=== PATIENT | female | born 1995 | race African-American/Black ===

== ENCOUNTER 2024-11-07 10:55 | Inpatient (IN) | payer OTHER, SELFPAY ==
[~2024-11-07] VITALS: Ht 160 cm; Wt 60.0 kg
--- NOTE | 2024-11-07 11:46 | ECG ---
[facility] Test Date: 2024-11-07 Test Time: 11:22:48 Pat Name: TOMASZ ALVAREZ Department: ER Room: 0293 Gender: F Fleet Manager: ANH : 1995 Requested By: BELA COLLINS Order Number: [id number] Reading MD: Golden Nichole Measurements Intervals [place] Rate: 127 P: 78 NJ: 118 QRS: 77 QRSD: 75 T: -56 QT: 285 QTc: 415 Interpretive Statements Sinus tachycardia Multiple ventricular premature complexes Nonspecific T abnormalities, diffuse leads Electronically Signed On 11-09-2024 19:02:08 PDT by Golden Nichole Please click the below link to view image of tracing.
--- NOTE | 2024-11-07 11:48 | ED.PDOC ---
GI ASSESSMENT HPI Comments This is a 29 year old female presenting to the ED with chief complaint of abdominal pain. Patient reports that she has been experiencing RUQ abdominal pain with associated mid-sternal chest pain, back pain, fever, nausea, SOB, and poor appetite for the past 18 days. Patient relays that she visited both a [facility] and [place] for evaluation, being diagnosed with gallbladder sludge and lesions on her liver. Patient notes her last fever was 101F on Abdiel. Patient denies any vomiting, diarrhea, chills, dysuria, cough, or headache. Chief Complaint: Abdominal Pain Time Seen by MD: 11:40 Reviewed Notes: Nurses Notes, Medications, Allergies Information Source: Patient Mode of Arrival: Ambulatory Timing: Weeks Duration: Since onset Prehospital treatment: None Quality: Aching Vomitus: None Stool: Normal Severity: Moderate Recent: None Recent Hx of: None Pain Location: Epigastric, RUQ Modifying Factors: Nothing Associated sign and symptoms: Nausea Past Medical History PAST MEDICAL HISTORY: Denies Surgical History: Denies all surgeries SOA INTEGRATION ARCHITECT History: No Pertinent SOA INTEGRATION ARCHITECT History Family History Family History: Reviewed,noncontributory to illness Social History Smoker: Non-Smoker Alcohol: Denies ETOH Use Drugs: Denies Drug Use Lives In: Home Constitutional: reports: fever; denies: chills, diaphoresis, fatigue, malaise, sweats, weakness, others EENTM: denies: blurred vision, double vision, ear bleeding, ear discharge, ear drainage, ear pain, ear ringing, eye pain, eye redness, hearing loss, mouth pain, mouth swelling, nasal discharge, nose bleeding, nose congestion, nose pain, photophobia, tearing, throat pain, throat swelling, voice changes, others Respiratory: reports: shortness of breath; denies: cough, hemoptysis, orthopnea, SOB at rest, SOB with excertion, stridor, wheezing, others Cardiovascular: reports: chest pain; denies: dizzy spells, diaphoresis, Dyspnea on exertion, edema, irregular heart beat, left arm pain, lightheadedness, palpitations, PND, syncope, others Gastrointestinal: reports: abdominal pain, nausea, poor appetite; denies: abdomen distended, blood streaked bowels, constipated, diarrhea, dysphagia, difficulty swallowing, hematemesis, melena, poor fluid intake, rectal bleeding, rectal pain, vomiting, others Genitourinary: denies: abnormal vagina bleeding, burning, dyspareunia, dysuria, flank pain, frequency, hematuria, incontinence, pain, , vagina discharge, urgency, others Neurological: denies: dizziness, fainting, headache, left sided numbness, left sided weakness, numbness, paresthesia, pre-existing deficit, right sided numbness, right sided weakness, seizure, speech problems, tingling, tremors, weakness, others Musculoskeletal: reports: back pain; denies: gout, joint pain, joint swelling, muscle pain, muscle stiffness, neck pain, others Integumetry: denies: bruises, change in color, change in hair/nails, dryness, laceration, lesions, lumps, rash, wounds, others Allergic/Immunocompromised: denies: Difficulty Healing, Frequent Infections, Hives, Itching, others Hematologic/Lymphatic: denies: anemia, blood clots, easy bleeding, easy bruising, swollen glands, others Endocrine: denies: excessive hunger, excessive sweating, excessive thirst, excessive urination, flushing, intolerance to cold, intolerance to heat, unexplained weight gain, unexplained weight loss, others Psychiatric: denies: anxiety, bipolar disorder, depression, hopeless, panic disorder, schizophrenia, sleepless, suicidal, others All Other Systems: Reviewed and Negative Physical Exam General Appearance: Moderate Distress HEENT: Normal ENT Inspection, Pharynx Normal, TMs Normal Neck: Full Range of Motion, Non-Tender, Normal, Normal Inspection Respiratory: Chest Non-Tender, Lungs Clear, No Accessory Muscle Use, No Respiratory Distress, Normal Breath Sounds Cardiovascular: No Edema, No JVD, No Murmur, No Gallop, Tachycardia Breast Exam: Deferred Gastrointestinal: Diffuse, No Organomegaly, No Pulsatile Mass, Normal Bowel Sounds, Soft, Tenderness Genitalia: Deferred Pelvic: Deferred Rectal: Deferred Extremities: No calf tenderness, Normal capillary refill, No pedal edema Musculoskeletal : Apperance: Normal Neurologic: Alert, hospice office coordinator II-XII nml as Tested, Motor Weakness, Normal Affect, Normal Mood, No Sensory Deficits Cerebellar Function: Normal Reflexes: Normal Skin: Dry, Normal Color, Warm Lymphatic: No Adenopathy EKG EKG : Pulse Rate (adult): 127 [place]: Normal Cardiac Rhythm: ST Block: None Hypertrophy: None ST: Normal Was a procedure done? Was a procedure done?: No GI differential Dx Differential Diagnosis: Gastritis/PUD, Gastroenteritis, Inflammatory BD, Ischemic Bowel, Pancreatitis, UTI, Electrolyte Imbalance, Food Poisoning X-Ray, Labs, Meds, VS Vital Signs Date Time Temp Pulse Resp B/P (MAP) Pulse Ox O2 Delivery O2 Flow Rate FiO2 11/07/24 11:48 127 11/07/24 11:22 127 11/07/24 11:02 97.4 127 18 122/47 (72) 99 97.4 Lab Test 11/07/24 11:54 Range/Units White Blood Count 10.8 4.4-10.8 10^3/uL Red Blood Count 5.72 H 4.0-5.20 10^6/uL Hemoglobin 16.1 12.2-16.2 g/dL Hematocrit 48.5 H 36.0-46.0 % Mean Corpuscular Volume 84.8 80.0-100.0 fL Mean Corpuscular Hemoglobin 28.2 28.0-32.0 pg Mean Corpuscular Hemoglobin Concent 33.3 32.0-36.0 g/dL Red Cell Distribution Width 13.3 11.8-14.3 % Platelet Count 424 140-450 10^3/uL Mean Platelet Volume 10.0 6.9-10.8 fL Neutrophils (%) (Auto) 79.4 37.0-80.0 % Lymphocytes (%) (Auto) 14.1 10.0-50.0 % Monocytes (%) (Auto) 5.4 0.0-12.0 % Eosinophils (%) (Auto) 0.7 0.0-7.0 % Basophils (%) (Auto) 0.4 0.0-2.0 % Neutrophils # (Auto) 8.6 1.6-8.6 10 ^3/uL Lymphocytes # (Auto) 1.5 0.4-5.4 10 ^3/uL Monocytes # (Auto) 0.6 0-1.3 10 ^3/uL Eosinophils # (Auto) 0.1 0-0.8 10 ^3/uL Basophils # (Auto) 0 0-0.2 10 ^3/uL Nucleated Red Blood Cells 0.1 % Prothrombin Time 11.6 9.3-11.8 sec Prothrombin Time INR 1.11 0.9-1.15 Activated Partial Thromboplast Time 29.0 24.5-34.5 SEC Sodium Level 137 136-145 mmol/L Potassium Level 4.0 3.5-5.1 mmol/L Chloride Level 102 98-107 mmol/L Carbon Dioxide Level 17 L 20-31 mmol/L Anion Gap 18 H 5-15 Blood Urea Nitrogen 13 9-23 mg/dL Creatinine 0.88 0.550-1.02 mg/dL Glomerular Filtration Rate Calc 91 >90 mL/min BUN/Creatinine Ratio 14.8 10.0-20.0 Serum Glucose 59 L 74-106 mg/dL Calcium Level 10.8 H 8.7-10.4 mg/dL Total Bilirubin 1.8 H 0.2-1.0 mg/dL Aspartate Amino Transferase (AST) 73 H 13-40 U/L Alanine Aminotransferase (ALT) 217 H 7-40 U/L Alkaline Phosphatase 97 46-116 U/L Total Protein 8.9 H 5.7-8.2 g/dL Albumin 5.2 H 3.2-4.8 g/dL Lipase 29 12-53 U/L CT Abd/Pel w/ IV Con indicates: 1. No acute abdominal or pelvic finding. Dilated left ovarian vein of unclear significance. Can be seen with pelvic congestion syndrome. Clinical correlation and continued follow-up is recommended. The patient's CBC is within normal limits The chemistry panel is within normal limits The liver enzymes are elevated The total bilirubin is elevated at 1.8 The patient is being admitted to the hospitalist Images Reviewed?: Images reviewed and evaluated by me Time of 1ST Reevaluation: 14:45 Reevaluation 1ST: Unchanged Patient Education/Counseling: Diagnosis, Treatment, Prognosis Family Education/Counseling: No Family Present Additional Information Reviewed patient's previous visit(s): None The following tests were ordered, and results were reviewed by me: CBC, CMP, Lipase, PTPTT, UA, CT Abd/Pel W/ IV Con Additional information was gathered from interviewing the following independent historian: None I reviewed and agreed with the following test results read by other provider: CT Abd/Pel W/ IV Con I discussed treatments and results with medical personnel and: Patient Comprehensive systems review obtained and negative except for what is stated in the HPI. SEPSIS Sepsis Screen Physician Orders Ct Ab Pel With Iv Con Only (11/07/24 11:38) Heplock Iv (11/07/24 11:38) Urinalysis (11/07/24 11:38) Iohexol (Omnipaque) (11/07/24 13:04) Vital Signs Date Time Temp Pulse Resp B/P (MAP) Pulse Ox O2 Delivery O2 Flow Rate FiO2 11/07/24 11:48 127 11/07/24 11:22 127 11/07/24 11:02 97.4 127 18 122/47 (72) 99 97.4 Laboratory Tests Test 11/07/24 11:54 White Blood Count 10.8 10^3/uL (4.4-10.8) Departure 1 Departure Time of Disposition: 14:44 Impression: Primary Impression: Intractable abdominal pain Additional Impressions: Hyperbilirubinemia Elevated liver enzymes Disposition: ADMITTED INPATIENT Admit to: Med Surg Condition: Fair Critical Care Note Critical Care Time?: No Stability Stability form required: Yes Unstable for transfer: ED Physician Assesment (Clinical assesment) Heart Score Heart Score: Heart Score Response (Comments) Value History N/A 0 EKG N/A 0 Age N/A 0 Risk Factors N/A 0 Troponin N/A 0 Total 0 I personally scribed for BELA COLLINS MD ([email or web address]) on 11/07/24 at 11:48. Electronically submitted by Eddie Membreno ([email or web address]). I personally scribed for BELA COLLINS MD ([email or web address]) on 11/07/24 at 14:37. Electronically submitted by Eddie Membreno ([email or web address]). BELA COLLINS MD Nov 07, 2024 11:48
[2024-11-07 12:19] LABS: Hematocrit 48.5 % (36.0-46.0); Hemoglobin 16.1 g/dL (12.2-16.2); Mean Corpuscular Hemoglobin 28.2 pg (28.0-32.0); Mean Corpuscular Volume 84.8 fL (80.0-100.0); Nucleated Red Blood Cells % 0.1 %
[2024-11-07 12:30] LABS: INR 1.11 (0.9-1.15); Partial Thromboplastin Time 29.0 SEC (24.5-34.5); Prothrombin Time 11.6 sec (9.3-11.8)
[2024-11-07 12:33] LABS: Alkaline Phosphatase 97 U/L (46-116); Anion Gap 18 (5-15); BUN/Creatinine Ratio 14.8 (10.0-20.0); Blood Urea Nitrogen 13 mg/dL (9-23); Chloride 102 mmol/L (98-107); Potassium 4.0 mmol/L (3.5-5.1); Sodium 137 mmol/L (136-145)
[2024-11-07 12:34] LABS: Alanine Aminotransferase 217 U/L (7-40); Albumin 5.2 g/dL (3.2-4.8); Bilirubin, Total 1.8 mg/dL (0.2-1.0); Calcium 10.8 mg/dL (8.7-10.4); Carbon Dioxide 17 mmol/L (20-31); Glucose 59 mg/dL (74-106); Total Protein 8.9 g/dL (5.7-8.2)
[2024-11-07 12:41] LABS: Lipase 29 U/L (12-53)
[2024-11-07] MEDS: IOHEXOL 300 MG/ML 100ML BOTTLE IJ ONE (13:28)
--- NOTE | 2024-11-07 14:07 | DVH ---
Exam: CT CT AB PEL WITH IV CON ONLY History: pain COMPARISON: None Technique: Multidetector spiral CT of the abdomen and pelvis was performed from lung bases to pubic symphysis. Intravenous contrast was administered during this examination. Portal venous imaging was obtained. Axial, coronal and sagittal multiplanar reformats were performed by the technologist on a separate workstation. Radiation Dose : Abdomen/Pelvis: CTDIvol 5.34 mGy, DLP 267.73 mGy*cm. CONTRAST: Type of contrast: Omni 300 Contrast injected: Under mL Findings: Lung Bases: No acute or significant lung base finding. Normal heart size. No pleural or pericardial effusion. Liver: The liver is normal in size. No focal lesions. Normal hepatic vascular enhancement. Gallbladder and biliary Tree: Unremarkable Spleen: Unremarkable Pancreas: The pancreas is normal in appearance without focal lesions or abnormal enhancement. Adrenal Glands: Unremarkable Kidneys: No hydronephrosis. Bladder: Unremarkable Bowel: The stomach is grossly normal in appearance. Small bowel and colon are normal in caliber and d istribution. Normal appendix is visualized in the right lower quadrant without findings of appendicit is. Ascites: Absent Lymphadenopathy: No mesenteric, retroperitoneal or periportal lymphadenopathy. Abdominal wall and Mesentery: Unremarkable. Vasculature: Left ovarian vein is dilated. Pelvic Organs: Unremarkable Musculoskeletal: No aggressive focal bony lesions, acute fractures or dislocation. IMPRESSION: 1. No acute abdominal or pelvic finding. Dilated left ovarian vein of unclear significance. Can be se en with pelvic congestion syndrome. Clinical correlation and continued follow-up is recommended. Radiation optimization: All CT scans at this facility use at least one of these dose optimization abhi hniques: Automated exposure control mA and/or kV adjustment per patient size (includes targeted exams where dose is matched to clinical indication) or iterative reconstruction. HS:Y
--- NOTE | 2024-11-07 18:33 | DVHHP2 ---
History of Present Illness Reason for Visit: Acute abdominal pain History of Present Illness The patient is a 29-year-old female who denies past medical history presented to [facility] ED with complaint of abdominal pain. Patient reports that she has been experiencing RUQ abdominal pain with associated mid-sternal chest pain, back pain, fever, nausea, shortness of breaths, and poor appetite for the past 18 days. Patient relays that she visited both a [facility] and [place] for evaluation, being diagnosed with gallbladder sludge and lesions on her liver. Patient was seen and evaluated in the ED, laboratory data shows WBC 10.8, platelets 424, sodium 137, potassium 4.0, BUN 13, creatinine 0.58, glucose 59, calcium 10.8, lipase 29, total bilirubin 1.8, AST 73, ALT 217, blood pressure 122/47, heart rate 127 trending down to 101, temperature 97.4 F, O2 saturation 99% on room air. Abdomen/pelvis CT showed no acute abdominal or pelvic finding, dilated left ovarian vein of unclear significance, can be seen with pelvic congestion syndrome. Please see medication orders section in the computer. On my assessment, patient denied chest pain, no headache, no dizziness, no shortness of breath, no nausea, no vomiting, no fever, no chills. Patient was admitted for further evaluation and medical management. Past Medical History Denies past medical history Past Surgical History Denies all surgeries Family History Reviewed, noncontributory to the management of this case. Past Social History The patient lives at home, denies smoking, alcohol or illicit drugs abuse. Review of Systems Constitutional: Yes: Fever; No: Chills, Sweats, Weakness, Malaise, Other Eyes: No: Pain, Vision change, Conjunctivae inflammation, Eyelid inflammation, Other, Redness ENT: No: Ear pain, Ear discharge, Nose pain, Nose discharge, Nose congestion, Mouth pain, Mouth swelling, Throat pain, Throat swelling, Other Respiratory: Shortness of breath; No: Cough, Dry, SOB with excertion, Wheezing, Hemoptysis, Pleuritic Pain, Sputum, Wheezing, Other Cardiovascular: Chest Pain; No: Palpitations, Orthopnea, Paroxysmal Noc. Dyspnea, Edema, Lt Headedness, Other Gastrointestinal: Nausea, Abdominal Pain, Other (Poor appetite); No: Vomiting, Diarrhea, Constipation, Melena, Hematochezia Genitourinary: No Dysuria, No Frequency, No Incontinence, No Hematuria, No Retention, No Other Musculoskeletal: back pain; No: other, neck pain, shoulder pain, arm pain, hand pain, leg pain, foot pain Skin: No: Rash, Lesions, Jaundice, Bruising, Other Neurological: No: Weakness, Numbness, Incoordination, Change in speech, Confusion, Seizures, Other Allergies: Coded Allergies: NO KNOWN ALLERGIES (Unverified , 11/07/24) Medications Current Medications Medications Dose Ordered Sig/Brianna Route Start Time Stop Time Status Last Admin Dose Admin Pantoprazole Sodium 40 mg DAILY IV 11/08/24 10:00 Sodium Chloride 1,000 ml @ 60 mls/hr [id number] IV 11/07/24 17:30 Acetaminophen/ Hydrocodone Bitart 1 tab Q4HP PRN PO 11/07/24 17:30 Ondansetron HCl 4 mg Q4HP PRN IV 11/07/24 17:30 Docusate Sodium 100 mg BIDPRN PRN PO 11/07/24 17:30 Acetaminophen 650 mg Q6HP PRN PO 11/07/24 17:30 Morphine Sulfate 2 mg Q4HPRN PRN IV 11/07/24 17:30 Exam Vital Signs Vital Signs Date Time Temp Pulse Resp B/P (MAP) Pulse Ox O2 Delivery O2 Flow Rate FiO2 11/07/24 11:48 127 11/07/24 11:02 97.4 18 122/47 (72) 99 97.4 General Appearance: Alert, Oriented X3, Cooperative, No acute distress HEENT: Atraumatic, PERRLA, EOMI, Mucous membr. moist/pink Respiratory: Normal air movement Cardiovascular: Regular rate, Normal S1, Normal S2, No murmurs Abdominal: Normal bowel sounds, Soft, No hepatospenomegaly, No masses, Other ( Reports tenderness) Extremities: No clubbing, No cyanosis, No edema, Normal pulses, No tenderness/swelling Skin: No rashes, No breakdown, No significant lesion Neuro: Normal gait, Normal speech, Strength at 5/5 X4 ext, Normal tone, Sensation intact, Cranial nerves 3-12 NL, Reflexes 2+ Psych/Mental Status: Mental status NL, Mood NL Labs/Xrays Labs Test 11/07/24 11:54 Range/Units White Blood Count 10.8 4.4-10.8 10^3/uL Red Blood Count 5.72 H 4.0-5.20 10^6/uL Hemoglobin 16.1 12.2-16.2 g/dL Hematocrit 48.5 H 36.0-46.0 % Mean Corpuscular Volume 84.8 80.0-100.0 fL Mean Corpuscular Hemoglobin 28.2 28.0-32.0 pg Mean Corpuscular Hemoglobin Concent 33.3 32.0-36.0 g/dL Red Cell Distribution Width 13.3 11.8-14.3 % Platelet Count 424 140-450 10^3/uL Mean Platelet Volume 10.0 6.9-10.8 fL Neutrophils (%) (Auto) 79.4 37.0-80.0 % Lymphocytes (%) (Auto) 14.1 10.0-50.0 % Monocytes (%) (Auto) 5.4 0.0-12.0 % Eosinophils (%) (Auto) 0.7 0.0-7.0 % Basophils (%) (Auto) 0.4 0.0-2.0 % Neutrophils # (Auto) 8.6 1.6-8.6 10 ^3/uL Lymphocytes # (Auto) 1.5 0.4-5.4 10 ^3/uL Monocytes # (Auto) 0.6 0-1.3 10 ^3/uL Eosinophils # (Auto) 0.1 0-0.8 10 ^3/uL Basophils # (Auto) 0 0-0.2 10 ^3/uL Nucleated Red Blood Cells 0.1 % Prothrombin Time 11.6 9.3-11.8 sec Prothrombin Time INR 1.11 0.9-1.15 Activated Partial Thromboplast Time 29.0 24.5-34.5 SEC Sodium Level 137 136-145 mmol/L Potassium Level 4.0 3.5-5.1 mmol/L Chloride Level 102 98-107 mmol/L Carbon Dioxide Level 17 L 20-31 mmol/L Anion Gap 18 H 5-15 Blood Urea Nitrogen 13 9-23 mg/dL Creatinine 0.88 0.550-1.02 mg/dL Glomerular Filtration Rate Calc 91 >90 mL/min BUN/Creatinine Ratio 14.8 10.0-20.0 Serum Glucose 59 L 74-106 mg/dL Calcium Level 10.8 H 8.7-10.4 mg/dL Total Bilirubin 1.8 H 0.2-1.0 mg/dL Aspartate Amino Transferase (AST) 73 H 13-40 U/L Alanine Aminotransferase (ALT) 217 H 7-40 U/L Alkaline Phosphatase 97 46-116 U/L Total Protein 8.9 H 5.7-8.2 g/dL Albumin 5.2 H 3.2-4.8 g/dL Lipase 29 12-53 U/L PATIENT: TOMASZ ALVAREZCCT: [id number] UNIT: [id number] : 1995 LOC: ER ROOM / BED: / AGE / SEX: 29 / F ADM STATUS: REG ER SERVICE 1138 ORDERING PHYSICIAN: BELA COLLINS MD PROCEDURE(s): ABPLIV - CT AB PEL WITH IV CON ONLY REASON: pain ORDER NUMBER(s): [id number], ACCESSION NUMBER(s): [id number] Exam: CT CT AB PEL WITH IV CON ONLY History: pain COMPARISON: None Technique: Multidetector spiral CT of the abdomen and pelvis was performed from lung bases to pubic symphysis. Intravenous contrast was administered during this examination. Portal venous imaging was obtained. Axial, coronal and sagittal multiplanar reformats were performed by the technologist on a separate workstation. Radiation Dose: Abdomen/Pelvis: CTDIvol 5.34 mGy, DLP 267.73 mGy*cm. CONTRAST: Type of contrast: Omni 300 Contrast injected: Under mL Findings: Lung Bases: No acute or significant lung base finding. Normal heart size. No pleural or pericardial effusion. Liver: The liver is normal in size. No focal lesions. Normal hepatic vascular enhancement. Gallbladder and biliary Tree: Unremarkable Spleen: Unremarkable Pancreas: The pancreas is normal in appearance without focal lesions or abnormal enhancement. Adrenal Glands: Unremarkable Kidneys: No hydronephrosis. Bladder: Unremarkable Bowel: The stomach is grossly normal in appearance. Small bowel and colon are normal in caliber and distribution. Normal appendix is visualized in the right lower quadrant without findings of appendicitis. Ascites: Absent Lymphadenopathy: No mesenteric, retroperitoneal or periportal lymphadenopathy. Abdominal wall and Mesentery: Unremarkable. Vasculature: Left ovarian vein is dilated. Pelvic Organs: Unremarkable Musculoskeletal: No aggressive focal bony lesions, acute fractures or dislocation. IMPRESSION: 1. No acute abdominal or pelvic finding. Dilated left ovarian vein of unclear significance. Can be seen with pelvic congestion syndrome. Clinical correlation and continued follow-up is recommended. Assessment/Plan Assessment/Plan Intractable abdominal pain Tachycardia Hyperbilirubinemia Elevated liver enzymes Plan 1. Admit to med surge unit 2. Breathing treatment 3. Pain control management 4. Management of fluids and electrolytes 5. Consultation for GI/hospitalist 6. Diagnostic tests abdomen/pelvis CT 7. DVT prophylaxis-on SCDs 8. Repeat labs CBC, CMP in a.m. 9. Continue with current medical management 10. Treatment plan discussed with patient and RN. Patient verbalized understanding. Plan discussed with: Patient, Other (RN) My Orders Orders - VAISHALI MAHONEY DNP Procedure Category Date Status Time * Gi Dvh Tobacco Drier Operator CONS 11/07/24 Transmitted 17:17 Pantoprazole PHA 11/08/24 In Process (Protonix) 10:00 Allergies LOVE 11/07/24 In Process 17:17 Code Status CODE 11/07/24 Transmitted 17:17 Sodium Chloride 0.9% PHA 11/07/24 In Process 17:30 Oxygen Per Hour RT 11/07/24 Transmitted 17:17 Hydrocodone-Acet PHA 11/07/24 In Process 5/325mg Tab ([place] 17:30 Ondansetron Hcl PHA 11/07/24 In Process (Zofran) 17:30 Docusate Sodium PHA 11/07/24 In Process Capsule (Colace 17:30 Complete Blood Count LAB 11/08/24 Verified 04:00 Comprehensive LAB 11/08/24 Verified Metabolic Panel 04:00 Condition: Serious LOVE 11/07/24 In Process 17:17 Acetaminophen Tablet PHA 11/07/24 In Process (Tylenol Tablet) 17:30 Clear Liq Diet DIET 11/07/24 Transmitted Dinner Bedrest With Bathroom LOVE 11/07/24 In Process Privileg 17:17 Morphine Sulfate PHA 11/07/24 In Process Injection 17:30 Sequential LOVE 11/07/24 In Process Compression Device Problem List: (1) Intractable abdominal pain (2) Tachycardia (3) Hyperbilirubinemia (4) Elevated liver enzymes Date of Service: Nov 07, 2024 Billing Provider: VAISHALI MAHONEY DNP Common Visit Codes: 19738-ODAGBFO INP/OBS CARE (HIGH) VAISHALI MAHONEY DNP Nov 07, 2024 18:33
[2024-11-07] MEDS: SODIUM CHLORIDE 0.9% 1,000 ML IV SCH (18:44)
[2024-11-07] MEDS ORDERED: NITROGLYCERIN 0.4 MG SL TAB SL PRN (18:45)
[2024-11-07] MEDS ORDERED: MORPHINE SULFATE INJ 2 MG/ml SYRG IV PRN (18:45)
[2024-11-07] MEDS: PANTOPRAZOLE 40 MG/10 ML VIAL INJ IV ONE (19:00)
[2024-11-07] MEDS: MORPHINE SULFATE INJ 2 MG/ml SYRG IV PRN (23:07)
[2024-11-07] MEDS: ONDANSETRON HCL 4 MG/2 ML VIAL IV PRN (23:07)
[2024-11-07 23:15] VITALS: RESP 22
[2024-11-07 23:57] VITALS: BP 108/61; PULSE 80; RESP 16; TEMP 97.5; O2SAT 100
[2024-11-08] MEDS: D5W/SOD CHLO 0.9% 1,000 ML IV SCH (00:17)
[2024-11-08 00:41] VITALS: RESP 17
[2024-11-08 04:15] LABS: Hematocrit 44.8 % (36.0-46.0); Hemoglobin 14.9 g/dL (12.2-16.2); Mean Corpuscular Hemoglobin 28.4 pg (28.0-32.0); Mean Corpuscular Volume 85.1 fL (80.0-100.0); Nucleated Red Blood Cells % 0.1 %
[2024-11-08 04:29] LABS: Alanine Aminotransferase 179 U/L (7-40); Albumin 4.9 g/dL (3.2-4.8); Alkaline Phosphatase 89 U/L (46-116); Anion Gap 16 (5-15); BUN/Creatinine Ratio 12.8 (10.0-20.0); Blood Urea Nitrogen 11 mg/dL (9-23); Calcium 9.7 mg/dL (8.7-10.4); Carbon Dioxide 18 mmol/L (20-31); Chloride 105 mmol/L (98-107); Glucose 75 mg/dL (74-106); Potassium 4.1 mmol/L (3.5-5.1); Sodium 139 mmol/L (136-145); Total Protein 8.3 g/dL (5.7-8.2)
[2024-11-08 04:34] LABS: Bilirubin, Total 1.7 mg/dL (0.2-1.0)
[2024-11-08 05:16] VITALS: BP 95/55; PULSE 83; RESP 17; TEMP 97.5; O2SAT 95
[2024-11-08] MEDS: HYDROcodone-ACET 5/325MG TAB PO PRN (08:55)
[2024-11-08] MEDS: PANTOPRAZOLE 40 MG/10 ML VIAL INJ IV SCH (08:58)
[2024-11-08 09:16] VITALS: BP 117/70; PULSE 75; RESP 16; TEMP 97.9; O2SAT 100
--- NOTE | 2024-11-08 11:47 | DVHINCON2 ---
GI Consult Consult Note GI consult note Date of Consultation: 11/08/2024 Chief Complaint: Elevated LFTs Referring Physician: Jatin ESCALONA H&P: 29-year-old female presented to ER complaining of right upper quadrant abdominal pain. Patient says pain radiates to her back, started 18 days ago. Complaining of nausea and vomiting. No hematemesis. Patient has decreased appetite. Has weight loss of 15 lb in the past 2-3 weeks. Last bowel movement about 15-18 days ago, denies melena or red blood in stool. Patient denies history of GERD. No EGD in past. Denies alcohol use or any other drug use. Patient denies use of Tylenol. Has been hospitalized recently at both [facility] for evaluation of abdominal pain and diagnosed with gallbladder sludge and lesions on her liver. Past Medical History: Denies Past Surgical History: Denies Social History: NO smoking, drinking ETOH and use of illegal drugs. Family History: Noncontributory Review of Systems: Constitutional: no fever, chill, weight loss HEENT: no eye pain, no hearing loss, no oral lesion, no scleral icterus Heart: no chest pain, no chest pressure Lung: no cough, no dyspnea with exertion Abdomen: see HPI Physical exam: General: NAD, AAOX3 Chest: lung white clear to auscultation Heart: RRR, no murmur Abdomen: non-distended, generalized tenderness to palpation, +BS Labs: Labs Test 11/08/24 03:38 11/07/24 11:54 Range/Units White Blood Count 8.5 4.4-10.8 10^3/uL Red Blood Count 5.27 H 4.0-5.20 10^6/uL Hemoglobin 14.9 12.2-16.2 g/dL Hematocrit 44.8 36.0-46.0 % Mean Corpuscular Volume 85.1 80.0-100.0 fL Mean Corpuscular Hemoglobin 28.4 28.0-32.0 pg Mean Corpuscular Hemoglobin Concent 33.3 32.0-36.0 g/dL Red Cell Distribution Width 13.4 11.8-14.3 % Platelet Count 361 140-450 10^3/uL Mean Platelet Volume 10.0 6.9-10.8 fL Neutrophils (%) (Auto) 65.5 37.0-80.0 % Lymphocytes (%) (Auto) 25.2 10.0-50.0 % Monocytes (%) (Auto) 7.9 0.0-12.0 % Eosinophils (%) (Auto) 0.8 0.0-7.0 % Basophils (%) (Auto) 0.6 0.0-2.0 % Neutrophils # (Auto) 5.6 1.6-8.6 10 ^3/uL Lymphocytes # (Auto) 2.1 0.4-5.4 10 ^3/uL Monocytes # (Auto) 0.7 0-1.3 10 ^3/uL Eosinophils # (Auto) 0.1 0-0.8 10 ^3/uL Basophils # (Auto) 0.1 0-0.2 10 ^3/uL Nucleated Red Blood Cells 0.1 % Sodium Level 139 136-145 mmol/L Potassium Level 4.1 3.5-5.1 mmol/L Chloride Level 105 98-107 mmol/L Carbon Dioxide Level 18 L 20-31 mmol/L Anion Gap 16 H 5-15 Blood Urea Nitrogen 11 9-23 mg/dL Creatinine 0.86 0.550-1.02 mg/dL Glomerular Filtration Rate Calc 94 >90 mL/min BUN/Creatinine Ratio 12.8 10.0-20.0 Serum Glucose 75 74-106 mg/dL Calcium Level 9.7 8.7-10.4 mg/dL Total Bilirubin 1.7 H 0.2-1.0 mg/dL Aspartate Amino Transferase (AST) 54 H 13-40 U/L Alanine Aminotransferase (ALT) 179 H 7-40 U/L Alkaline Phosphatase 89 46-116 U/L Total Protein 8.3 H 5.7-8.2 g/dL Albumin 4.9 H 3.2-4.8 g/dL Prothrombin Time 11.6 9.3-11.8 sec Prothrombin Time INR 1.11 0.9-1.15 Activated Partial Thromboplast Time 29.0 24.5-34.5 SEC Lipase 29 12-53 U/L Imaging: CT abdomen pelvis IMPRESSION: 1. No acute abdominal or pelvic finding. Dilated left ovarian vein of unclear significance. Can be seen with pelvic congestion syndrome. Clinical correlation and continued follow-up is recommended. Assessment: Abdominal pain Elevated LFTs Dilated left ovarian vein Plan: Discussed with Dr. Urbina Abdominal ultrasound Pelvic ultrasound Hepatitis panel, UDS Advance to full liquid if tolerating Recommend technical photographer consult if symptoms persist We will continue to follow patient Discussed plan with patient and RN Thank you for this consult Date of Service: Nov 08, 2024 Billing Provider: EDNA ARDON Common Visit Codes: CONSULT ONLY Consultation Codes: [id number] CONSULT <45MIN EDNA ARDON Nov 08, 2024 11:47
[2024-11-08 12:20] LABS: Urine Protein, UAD 1+ (Negative)
[2024-11-08 12:23] LABS: Amphetamine Screen, Urine Neg (NEGATIVE); Barbiturate Scree,Urine Neg (NEGATIVE); Benzodiazephine Screen, Urine Neg (NEGATIVE); Cocaine Screen, Urine Neg (NEGATIVE); Opiate Scree,Urine Pos (NEGATIVE); Phencyclidine Screen, Urine Neg (NEGATIVE)
[2024-11-08 12:24] LABS: Cannabinoid Screen, Urine Neg (NEGATIVE)
--- NOTE | 2024-11-08 13:08 | DVHPN2 ---
Subjective The patient is seen and examined at bedside. The patient stated she had no appetite and had been rapid weight loss within couple week. The patient had been in [place] and [place] but could not find down was wrong with her. Today she come in because she become very tired, jaundice and itching all over the body. Per patient she also did not have any bowel movement for 16 days? Reviewed: Care Plan, H&P, Labs, Medications, Previous Orders, Radiology Changes from previous H/P or p: No Changes Eyes: No Pain, No Vision change, No Conjunctivae inflammation, No Eyelid inflammation, No Other, No Redness ENT: No Ear pain, No Ear discharge, No Nose pain, No Nose discharge, No Nose congestion, No Mouth pain, No Mouth swelling, No Throat pain, No Throat swelling, No Other Cardiovascular: Chest Pain; No Palpitations, No Orthopnea, No Paroxysmal Noc. Dyspnea, No Edema, No Lt Headedness, No Other Respiratory: No Cough, No Dry; Shortness of breath; No SOB with excertion, No Wheezing, No Hemoptysis, No Pleuritic Pain, No Sputum, No Other Gastrointestinal: Nausea; No Vomiting; Abdominal Pain; No Diarrhea, No Constipation, No Melena, No Hematochezia; Other (Poor appetite) Genitourinary: No Dysuria, No Frequency, No Incontinence, No Hematuria, No Retention, No Other Musculoskeletal: No other, No neck pain, No shoulder pain, No arm pain; back pain; No hand pain, No leg pain, No foot pain Skin: No Rash, No Lesions, No Jaundice, No Bruising, No Other Objective Vitals Vital Signs Date Time Temp Pulse Resp B/P (MAP) Pulse Ox O2 Delivery O2 Flow Rate FiO2 11/08/24 09:16 97.9 75 16 117/70 (86) 100 97.9 11/07/24 23:57 Nasal Cannula* 2 28 Intake/Output Intake and Output 11/08/24 07:00 Intake Total 50 ml Balance 50 ml Intake Oral 50 ml # Voids 1 General Appearance: Alert, Oriented X3, Cooperative, mild distress HEENT: Atraumatic, PERRLA, EOMI, Mucous membr. moist/pink Neck: Supple Lungs: Clear to auscultation, Normal air movement Cardiovascular: Regular rate, Normal S1, Normal S2, No murmurs, Gallops Abdomen: Normal bowel sounds, Soft, No tenderness Neuro: Cranial nerves 3-12 NL Lymph: Lymphadenopathy Medications Current Medications Medications Dose Ordered Sig/Brianna Route Start Time Stop Time Status Last Admin Dose Admin Pantoprazole Sodium 40 mg DAILY IV 11/08/24 10:00 11/08/24 08:58 40 MG Acetaminophen/ Hydrocodone Bitart 1 tab Q4HP PRN PO 11/07/24 17:30 11/08/24 08:55 1 TAB Ondansetron HCl 4 mg Q4HP PRN IV 11/07/24 17:30 11/08/24 05:08 4 MG Docusate Sodium 100 mg BIDPRN PRN PO 11/07/24 17:30 Acetaminophen 650 mg Q6HP PRN PO 11/07/24 17:30 Morphine Sulfate 2 mg Q4HPRN PRN IV 11/07/24 17:30 11/07/24 23:07 2 MG Nitroglycerin 0.4 mg Q5MINP PRN SL 11/07/24 18:45 Morphine Sulfate 2 mg Q30M PRN IV 11/07/24 18:45 Dextrose/Sodium Chloride 1,000 ml @ 75 mls/hr [id number] IV 11/07/24 21:15 11/08/24 00:17 75 MLS/HR Laboratory Results Laboratory Tests 11/08/24 03:38 Chemistry Test 11/08/24 03:38 Albumin 4.9 g/dL (3.2-4.8) H Calcium Level 9.7 mg/dL (8.7-10.4) Total Protein 8.3 g/dL (5.7-8.2) H LFT Test 11/08/24 03:38 Alanine Aminotransferase (ALT) 179 U/L (7-40) H Alkaline Phosphatase 89 U/L (46-116) Aspartate Amino Transferase (AST) 54 U/L (13-40) H Total Bilirubin 1.7 mg/dL (0.2-1.0) H Urinalysis Test 11/08/24 11:50 Urine Color Yellow (Yellow) Urine Clarity Turbid (Clear) H Urine pH 5.5 (5.0-9.0) Urine Specific [place] 1.038 (1.001-1.035) Urine Protein 1+ (Negative) H Urine Ketones 4+ (Negative) H Urine Blood 2+ /uL (Negative) H Urine Nitrite Negative (Negative) Urine Bilirubin Negative (Negative) Urine Urobilinogen 2 mg/dL (Negative) H Urine Leukocyte Esterase Trace /uL (Negative) Urine RBC 67 /hpf (0 - 4) Urine Microscopic WBC 24 /HPF (0-5) H Urine Squamous Epithelial Cells Few /hpf (<5) Urine Bacteria None seen /hpf (None Seen) Urine Hyaline Casts Few /lpf (0 - 2) Urine Granular Casts Few /lpf (0) Urine Mucus Few (None Seen) Urine Glucose Normal mg/dL (Normal) Labs and/or images reviewed: Labs reviewed by me Assessment/Plan Assessment/Plan Intractable abdominal pain Tachycardia Hyperbilirubinemia Elevated liver enzymes Jaundice ? Constipation Continuing current management. Continuing with pain medication. We will monitor her lab. We will follow up with ultrasound of pelvis. Appreciate GI specialist input. This medical document was created using an electronic medical record system with [employer] direct computerized dictation system. Although this document has been carefully reviewed, there may still be some phonetic and typographical errors. These areas are purely typographical due to imperfections of the software programs, and do not reflect any compromise in the patient's medical care. Plan discussed with: Patient Date of Service: Nov 08, 2024 Billing Provider: NITA URENA MD Common Visit Codes: [id number] INP/OBS CARE(HIGH) NITA URENA MD Nov 08, 2024 13:08
--- NOTE | 2024-11-08 13:11 | DVH ---
INDICATION: abd pain, elevated LFTs TECHNIQUE: Multiple real-time sonographic images were obtained of the right upper quadrant. COMPARISON: None FINDINGS: The liver demonstrates homogeneous echotexture without focal mass lesions. The liver measu res 14.6 cm. There is no intrahepatic or extrahepatic ductal dilatation. The common duct measures 0.3 cm. Gallbladder sludge is present. The gallbladder wall measures 0.1 cm and is within normal limits. The right kidney measures 8.7 cm. The right kidney is normal in contour, size, and shape. The echogen icity is normal. There is no hydronephrosis. The pancreas is not well visualized due to overlying bowel gas. IMPRESSION: Gallbladder sludge is present.
--- NOTE | 2024-11-08 13:14 | DVH ---
INDICATION: dilated ovarian vein TECHNIQUE: Multiple real-time grayscale transabdominal sonographic images along with color and duplex Doppler of the uterus and ovaries were obtained. COMPARISON: None FINDINGS: The uterus measures 7 x 4 x 2 cm. The endometrial stripe measures 0.4cm. The right ovary measures 3 x 1 x 2 cm. The left ovary measures 3 x x 2 cm. 1cm left ovarian cyst Subsequent color and duplex Doppler interrogation of the ovaries demonstrated symmetric vascular flow to both ovaries, though this does not exclude the possibility of torsion due to the dual blood suppl y. IMPRESSION: 1. Grossly unremarkable pelvic ultrasound.
[2024-11-08 15:58] LABS: Hepatitis A Total Antibody Positive (Negative)
[2024-11-08 15:59] LABS: Hepatitis B Surface Antigen Negative (Negative); Hepatitis C Antibody Negative (Negative)
[2024-11-08 18:40] VITALS: BP 102/58; PULSE 70; RESP 17; TEMP 97.9; O2SAT 99
[2024-11-08 21:00] VITALS: BP 103/64; PULSE 73; RESP 18; TEMP 97.9; O2SAT 98
[2024-11-09 01:00] VITALS: BP 99/60; PULSE 66; RESP 17; TEMP 98.1; O2SAT 100
[2024-11-09] MEDS: ACETAMINOPHEN 325 MG TAB PO PRN (01:48)
[2024-11-09 05:00] VITALS: BP 100/63; PULSE 68; RESP 18; TEMP 98; O2SAT 98
[2024-11-09 08:45] VITALS: BP 101/56; PULSE 74; RESP 14; TEMP 98; O2SAT 99
--- NOTE | 2024-11-09 12:16 | DVHPN2 ---
Subjective * The patient is seen and examined at bedside. Complain of hematuria Reviewed: Care Plan, H&P, Labs, Medications, Previous Orders, Radiology Changes from previous H/P or p: No Changes Eyes: No Pain, No Vision change, No Conjunctivae inflammation, No Eyelid inflammation, No Other, No Redness ENT: No Ear pain, No Ear discharge, No Nose pain, No Nose discharge, No Nose congestion, No Mouth pain, No Mouth swelling, No Throat pain, No Throat swelling, No Other Cardiovascular: Chest Pain; No Palpitations, No Orthopnea, No Paroxysmal Noc. Dyspnea, No Edema, No Lt Headedness, No Other Respiratory: No Cough, No Dry; Shortness of breath; No SOB with excertion, No Wheezing, No Hemoptysis, No Pleuritic Pain, No Sputum, No Other Gastrointestinal: Nausea; No Vomiting; Abdominal Pain; No Diarrhea, No Constipation, No Melena, No Hematochezia; Other (Poor appetite) Genitourinary: No Dysuria, No Frequency, No Incontinence, No Hematuria, No Retention, No Other Musculoskeletal: No other, No neck pain, No shoulder pain, No arm pain; back pain; No hand pain, No leg pain, No foot pain Skin: No Rash, No Lesions, No Jaundice, No Bruising, No Other Objective Vitals Vital Signs Date Time Temp Pulse Resp B/P (MAP) Pulse Ox O2 Delivery O2 Flow Rate FiO2 11/09/24 08:45 98.0 74 14 101/56 (71) 99 98.0 11/09/24 08:00 Room Air* 0 21 Intake/Output Intake and Output 11/09/24 07:00 Intake Total 1150 ml Balance 1150 ml Intake Oral 150 ml IV Total 1000 ml # Voids 1 General Appearance: Alert, Oriented X3, Cooperative, mild distress HEENT: Atraumatic, PERRLA, EOMI, Mucous membr. moist/pink Neck: Supple Lungs: Clear to auscultation, Normal air movement Cardiovascular: Regular rate, Normal S1, Normal S2, No murmurs, Gallops Abdomen: Normal bowel sounds, Soft, No tenderness Neuro: Cranial nerves 3-12 NL Lymph: Lymphadenopathy Medications Current Medications Medications Dose Ordered Sig/Brianna Route Start Time Stop Time Status Last Admin Dose Admin Pantoprazole Sodium 40 mg DAILY IV 11/08/24 10:00 11/09/24 10:10 40 MG Acetaminophen/ Hydrocodone Bitart 1 tab Q4HP PRN PO 11/07/24 17:30 11/08/24 08:55 1 TAB Ondansetron HCl 4 mg Q4HP PRN IV 11/07/24 17:30 11/09/24 10:10 4 MG Docusate Sodium 100 mg BIDPRN PRN PO 11/07/24 17:30 Acetaminophen 650 mg Q6HP PRN PO 11/07/24 17:30 11/09/24 01:48 650 MG Morphine Sulfate 2 mg Q4HPRN PRN IV 11/07/24 17:30 11/08/24 15:46 2 MG Nitroglycerin 0.4 mg Q5MINP PRN SL 11/07/24 18:45 Morphine Sulfate 2 mg Q30M PRN IV 11/07/24 18:45 Dextrose/Sodium Chloride 1,000 ml @ 75 mls/hr [id number] IV 11/07/24 21:15 11/09/24 01:38 75 MLS/HR Laboratory Results Laboratory Tests 11/08/24 03:38 Urinalysis Test 11/08/24 11:50 Urine Color Yellow (Yellow) Urine Clarity Turbid (Clear) H Urine pH 5.5 (5.0-9.0) Urine Specific [place] 1.038 (1.001-1.035) Urine Protein 1+ (Negative) H Urine Ketones 4+ (Negative) H Urine Blood 2+ /uL (Negative) H Urine Nitrite Negative (Negative) Urine Bilirubin Negative (Negative) Urine Urobilinogen 2 mg/dL (Negative) H Urine Leukocyte Esterase Trace /uL (Negative) Urine RBC 67 /hpf (0 - 4) Urine Microscopic WBC 24 /HPF (0-5) H Urine Squamous Epithelial Cells Few /hpf (<5) Urine Bacteria None seen /hpf (None Seen) Urine Hyaline Casts Few /lpf (0 - 2) Urine Granular Casts Few /lpf (0) Urine Mucus Few (None Seen) Urine Glucose Normal mg/dL (Normal) Labs and/or images reviewed: Labs reviewed by me Assessment/Plan Assessment/Plan Intractable abdominal pain Tachycardia Hyperbilirubinemia Elevated liver enzymes Jaundice ? Constipation Hematuria Dilated left ovarian vein Continuing current management. Continuing with pain medication. We will monitor her lab. We will follow up with ultrasound of pelvis. Appreciate GI specialist input. Will sent UA. FIN[employer] consult. Waiting for HIDA scan. This medical document was created using an electronic medical record system with [employer] direct computerized dictation system. Although this document has been carefully reviewed, there may still be some phonetic and typographical errors. These areas are purely typographical due to imperfections of the software programs, and do not reflect any compromise in the patient's medical care. Plan discussed with: Patient Date of Service: Nov 09, 2024 Billing Provider: NITA URENA MD Common Visit Codes: [id number] INP/OBS CARE(HIGH) NITA URENA MD Nov 09, 2024 12:16
[2024-11-09 13:30] VITALS: BP 112/76; PULSE 76; RESP 14; TEMP 98.2; O2SAT 98
[2024-11-09 17:00] VITALS: BP 107/60; PULSE 70; RESP 14; TEMP 97.6; O2SAT 94
[2024-11-09 21:00] VITALS: BP 103/58; PULSE 86; RESP 18; TEMP 98; O2SAT 100
--- NOTE | 2024-11-09 23:21 | DVHPN2 ---
Progress Note - Dictate Date Seen: Nov 09, 2024 Medical Necessity Reason Pt with a Central, PICC or Fol: No Subjective No new complaints Tolerating diet Patient is awake alert x3 vital signs Vital Sign Date Time Temp Pulse Resp B/P (MAP) Pulse Ox O2 Delivery O2 Flow Rate FiO2 11/09/24 21:00 98.0 86 18 103/58 (73) 100 98.0 11/09/24 08:00 Room Air* 0 21 Total Intake and Output 11/08/24 11/08/24 11/09/24 15:00 23:00 07:00 Intake Total 1150 ml Balance 1150 ml medications Current Medications Medications Dose Ordered Sig/Brianna Route Start Time Stop Time Status Last Admin Dose Admin Pantoprazole Sodium 40 mg DAILY IV 11/08/24 10:00 11/09/24 10:10 40 MG Acetaminophen/ Hydrocodone Bitart 1 tab Q4HP PRN PO 11/07/24 17:30 11/08/24 08:55 1 TAB Ondansetron HCl 4 mg Q4HP PRN IV 11/07/24 17:30 11/09/24 10:10 4 MG Docusate Sodium 100 mg BIDPRN PRN PO 11/07/24 17:30 Acetaminophen 650 mg Q6HP PRN PO 11/07/24 17:30 11/09/24 01:48 650 MG Morphine Sulfate 2 mg Q4HPRN PRN IV 11/07/24 17:30 11/09/24 16:20 2 MG Nitroglycerin 0.4 mg Q5MINP PRN SL 11/07/24 18:45 Morphine Sulfate 2 mg Q30M PRN IV 11/07/24 18:45 Dextrose/Sodium Chloride 1,000 ml @ 75 mls/hr [id number] IV 11/07/24 21:15 11/09/24 16:19 75 MLS/HR objective General: NAD, AAOX3 Chest: lung white clear to auscultation Heart: RRR, no murmur Abdomen: non-distended, generalized tenderness to palpation, +BS laboratory and microbiology Laboratory Tests 11/08/24 03:38 Test 11/08/24 03:38 Range/Units Serum Glucose 75 74-106 mg/dL Abdomen/pelvis CT showed no acute abdominal or pelvic finding, dilated left ovarian vein of unclear significance, can be seen with pelvic congestion syndrome. RUQ USG IMPRESSION: Gallbladder sludge is present. Problems(with codes): (1) Tachycardia (2) Intractable abdominal pain (3) Elevated liver enzymes (4) Hyperbilirubinemia (5) Abnormal finding on GI tract imaging Prognosis Plan Conservative management for now Hepatitis panel is negative and liver enzymes are trending down Check AMAN and serum ferritin HIDA scan and repeat hepatic panel in a.m. IV fluid hydration, IV ppi, conservative management for now Plan discussed with: Other (Stephani mg) DAY OSORIO MD Nov 09, 2024 23:21
[2024-11-10 01:00] VITALS: BP 93/48; PULSE 74; RESP 17; TEMP 98; O2SAT 96
[2024-11-10 05:00] VITALS: BP 99/62; PULSE 81; RESP 16; TEMP 97.8; O2SAT 99
[2024-11-10 09:00] VITALS: BP 122/88; PULSE 95; RESP 18; TEMP 97.8; O2SAT 96
--- NOTE | 2024-11-10 12:23 | DVHPN2 ---
Subjective * The patient is seen and examined at bedside.Waiting for HIDA scan. Reviewed: Care Plan, H&P, Labs, Medications, Previous Orders, Radiology Changes from previous H/P or p: No Changes Eyes: No Pain, No Vision change, No Conjunctivae inflammation, No Eyelid inflammation, No Other, No Redness ENT: No Ear pain, No Ear discharge, No Nose pain, No Nose discharge, No Nose congestion, No Mouth pain, No Mouth swelling, No Throat pain, No Throat swelling, No Other Cardiovascular: Chest Pain; No Palpitations, No Orthopnea, No Paroxysmal Noc. Dyspnea, No Edema, No Lt Headedness, No Other Respiratory: No Cough, No Dry; Shortness of breath; No SOB with excertion, No Wheezing, No Hemoptysis, No Pleuritic Pain, No Sputum, No Other Gastrointestinal: Nausea; No Vomiting; Abdominal Pain; No Diarrhea, No Constipation, No Melena, No Hematochezia; Other (Poor appetite) Genitourinary: No Dysuria, No Frequency, No Incontinence, No Hematuria, No Retention, No Other Musculoskeletal: No other, No neck pain, No shoulder pain, No arm pain; back pain; No hand pain, No leg pain, No foot pain Skin: No Rash, No Lesions, No Jaundice, No Bruising, No Other Objective Vitals Vital Signs Date Time Temp Pulse Resp B/P (MAP) Pulse Ox O2 Delivery O2 Flow Rate FiO2 11/10/24 09:00 97.8 95 18 122/88 (99) 96 97.8 11/10/24 08:00 Room Air* 0 21 Intake/Output Intake and Output 11/10/24 07:00 Intake Total 1270 ml Output Total 500 ml Balance 770 ml Intake Oral 745 ml IV Total 525 ml Output Urine Total 500 ml # Voids 2 General Appearance: Alert, Oriented X3, Cooperative, mild distress HEENT: Atraumatic, PERRLA, EOMI, Mucous membr. moist/pink Neck: Supple Lungs: Clear to auscultation, Normal air movement Cardiovascular: Regular rate, Normal S1, Normal S2, No murmurs, Gallops Abdomen: Normal bowel sounds, Soft, No tenderness Neuro: Cranial nerves 3-12 NL Lymph: Lymphadenopathy Medications Current Medications Medications Dose Ordered Sig/Brianna Route Start Time Stop Time Status Last Admin Dose Admin Pantoprazole Sodium 40 mg DAILY IV 11/08/24 10:00 11/10/24 09:59 40 MG Acetaminophen/ Hydrocodone Bitart 1 tab Q4HP PRN PO 11/07/24 17:30 11/08/24 08:55 1 TAB Ondansetron HCl 4 mg Q4HP PRN IV 11/07/24 17:30 11/10/24 05:43 4 MG Docusate Sodium 100 mg BIDPRN PRN PO 11/07/24 17:30 Acetaminophen 650 mg Q6HP PRN PO 11/07/24 17:30 11/09/24 01:48 650 MG Morphine Sulfate 2 mg Q4HPRN PRN IV 11/07/24 17:30 11/10/24 05:42 2 MG Nitroglycerin 0.4 mg Q5MINP PRN SL 11/07/24 18:45 Morphine Sulfate 2 mg Q30M PRN IV 11/07/24 18:45 Dextrose/Sodium Chloride 1,000 ml @ 75 mls/hr [id number] IV 11/07/24 21:15 11/10/24 02:35 75 MLS/HR Laboratory Results Laboratory Tests 11/08/24 03:38 Urinalysis Test 11/08/24 11:50 Urine Color Yellow (Yellow) Urine Clarity Turbid (Clear) H Urine pH 5.5 (5.0-9.0) Urine Specific [place] 1.038 (1.001-1.035) Urine Protein 1+ (Negative) H Urine Ketones 4+ (Negative) H Urine Blood 2+ /uL (Negative) H Urine Nitrite Negative (Negative) Urine Bilirubin Negative (Negative) Urine Urobilinogen 2 mg/dL (Negative) H Urine Leukocyte Esterase Trace /uL (Negative) Urine RBC 67 /hpf (0 - 4) Urine Microscopic WBC 24 /HPF (0-5) H Urine Squamous Epithelial Cells Few /hpf (<5) Urine Bacteria None seen /hpf (None Seen) Urine Hyaline Casts Few /lpf (0 - 2) Urine Granular Casts Few /lpf (0) Urine Mucus Few (None Seen) Urine Glucose Normal mg/dL (Normal) Labs and/or images reviewed: Labs reviewed by me Assessment/Plan Assessment/Plan Intractable abdominal pain Tachycardia Hyperbilirubinemia Elevated liver enzymes Jaundice ? Constipation Hematuria Dilated left ovarian vein Continuing current management. Continuing with pain medication. We will monitor her lab. We will follow up with ultrasound of pelvis. Appreciate GI specialist input. Will sent UA. [employer]INTER[employer]IL consult appreciate, no further work up. Waiting for HIDA scan. DW patient and family, if HIDA scan is negative, will prepare to dc her. Recommend outpatient psy work up for depression. Family adamant decline and state she is not depressed. This medical document was created using an electronic medical record system with [employer] direct computerized dictation system. Although this document has been carefully reviewed, there may still be some phonetic and typographical errors. These areas are purely typographical due to imperfections of the software programs, and do not reflect any compromise in the patient's medical care. Plan discussed with: Patient, Other (mother and sister.) My Orders Orders - NITA URENA MD Procedure Category Date Status Time * Ingredient Specialist Consultation CONS 11/09/24 Transmitted 13:15 Date of Service: Nov 10, 2024 Billing Provider: NITA URENA MD Common Visit Codes: [id number] INP/OBS CARE(HIGH) NITA URENA MD Nov 10, 2024 12:23
[2024-11-10 13:00] VITALS: BP 111/67; PULSE 67; RESP 16; TEMP 98.1; O2SAT 98
--- NOTE | 2024-11-10 13:51 | DVHINCON2 ---
Date of service: Nov 10, 2024 Referring Physician hospitalist Reason for Consultation pelvic congestion syndrome History of Present Illness pt is admitted for abd pain,noted to have gallbladder sludge.pelvic ct shows dilated left ovarian vein questionable pelvic congestion syndrome .pelvic sono is normal. Past Medical History na Past Surgical History none Family History na Social History 2 vag del Patient Family History: Patient reports no known family medical history. Allergies: Coded Allergies: NO KNOWN ALLERGIES (Unverified , 11/07/24) Home Meds No Active Prescriptions or Reported Meds Review of Systems Constitutional: no fever, chill, weight loss HEENT: no eye pain, no hearing loss, no oral lesion, no scleral icterus Heart: no chest pain, no chest pressure Lung: no cough, no dyspnea with exertion Abdomen: see HPI : no pain with urination, normal appearing urine Musculoskeletal: no joint pain, no muscle pain Neurological: no seizure, no loss of sensation, no weakness in extremities Pysch: no depression, no anxiety Derm: no rash, no jaundice Vital Signs Vital Signs Date Time Temp Pulse Resp B/P (MAP) Pulse Ox O2 Delivery O2 Flow Rate FiO2 11/10/24 09:00 97.8 95 18 122/88 (99) 96 97.8 11/10/24 08:00 Room Air* 0 21 Physical Exam SKIN: [nl] HEENT: [nl] NECK: [nl] CARDIAC: [rrr] PULMONARY: [cta] ABDOMEN: [soft,nt] MUSCULOSKELETAL: [nl] NEURO: [nl pelvic-ext gent wnl,cx nl,uterus nl size,adenxa nt] Labs/Diagnostic Data Labs Test 11/10/24 04:48 11/08/24 11:50 11/08/24 11:12 11/08/24 03:38 Range/Units Ferritin 210.7 10-291 ng/mL Beta HCG, Quantitative 0.9 L 1.5-4.2 mIU/mL Urine Color Yellow Yellow Urine Clarity Turbid H Clear Urine pH 5.5 5.0-9.0 Urine Specific [place] 1.038 H 1.001-1.035 Urine Protein 1+ H Negative Urine Ketones 4+ H Negative Urine Blood 2+ H Negative /uL Urine Nitrite Negative Negative Urine Bilirubin Negative Negative Urine Urobilinogen 2 H Negative mg/dL Urine Leukocyte Esterase Trace Negative /uL Urine RBC 67 0 - 4 /hpf Urine Microscopic WBC 24 H 0-5 /HPF Urine Squamous Epithelial Cells Few <5 /hpf Urine Bacteria None seen None Seen /hpf Urine Hyaline Casts Few 0 - 2 /lpf Urine Granular Casts Few 0 /lpf Urine Mucus Few None Seen Urine Glucose Normal Normal mg/dL Urine Opiates Screen Pos NEGATIVE Urine Fentanyl Screen Neg NEGATIVE Urine Barbiturates Screen Neg NEGATIVE Urine Phencyclidine Screen Neg NEGATIVE Urine Amphetamines Screen Neg NEGATIVE Urine Benzodiazepines Screen Neg NEGATIVE Urine Cocaine Screen Neg NEGATIVE Urine Cannabinoids Screen Neg NEGATIVE Hepatitis A Antibody Total Positive H Negative Hepatitis B Surface Antigen Negative Negative Hepatitis B Surface Antibody Positive H Negative Hepatitis B Core Total Antibody Negative Negative Hepatitis C Antibody Negative Negative White Blood Count 8.5 4.4-10.8 10^3/uL Red Blood Count 5.27 H 4.0-5.20 10^6/uL Hemoglobin 14.9 12.2-16.2 g/dL Hematocrit 44.8 36.0-46.0 % Mean Corpuscular Volume 85.1 80.0-100.0 fL Mean Corpuscular Hemoglobin 28.4 28.0-32.0 pg Mean Corpuscular Hemoglobin Concent 33.3 32.0-36.0 g/dL Red Cell Distribution Width 13.4 11.8-14.3 % Platelet Count 361 140-450 10^3/uL Mean Platelet Volume 10.0 6.9-10.8 fL Neutrophils (%) (Auto) 65.5 37.0-80.0 % Lymphocytes (%) (Auto) 25.2 10.0-50.0 % Monocytes (%) (Auto) 7.9 0.0-12.0 % Eosinophils (%) (Auto) 0.8 0.0-7.0 % Basophils (%) (Auto) 0.6 0.0-2.0 % Neutrophils # (Auto) 5.6 1.6-8.6 10 ^3/uL Lymphocytes # (Auto) 2.1 0.4-5.4 10 ^3/uL Monocytes # (Auto) 0.7 0-1.3 10 ^3/uL Eosinophils # (Auto) 0.1 0-0.8 10 ^3/uL Basophils # (Auto) 0.1 0-0.2 10 ^3/uL Nucleated Red Blood Cells 0.1 % Sodium Level 139 136-145 mmol/L Potassium Level 4.1 3.5-5.1 mmol/L Chloride Level 105 98-107 mmol/L Carbon Dioxide Level 18 L 20-31 mmol/L Anion Gap 16 H 5-15 Blood Urea Nitrogen 11 9-23 mg/dL Creatinine 0.86 0.550-1.02 mg/dL Glomerular Filtration Rate Calc 94 >90 mL/min BUN/Creatinine Ratio 12.8 10.0-20.0 Serum Glucose 75 74-106 mg/dL Calcium Level 9.7 8.7-10.4 mg/dL Total Bilirubin 1.7 H 0.2-1.0 mg/dL Aspartate Amino Transferase (AST) 54 H 13-40 U/L Alanine Aminotransferase (ALT) 179 H 7-40 U/L Alkaline Phosphatase 89 46-116 U/L Total Protein 8.3 H 5.7-8.2 g/dL Albumin 4.9 H 3.2-4.8 g/dL Test 11/07/24 11:54 Range/Units Prothrombin Time 11.6 9.3-11.8 sec Prothrombin Time INR 1.11 0.9-1.15 Activated Partial Thromboplast Time 29.0 24.5-34.5 SEC Lipase 29 12-53 U/L Primary Diagnosis 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
--- NOTE | 2024-11-10 15:08 | DVH ---
Procedure: NM NM HIDA SCAN Exam Date: 11/10/2024 10:32 AM Clinical History: elevated liver tests gallbladder sludge Comparison Study: 11/08/2024 Nuclear Medicine Hepatobiliary Scan. Technique: Following the intravenous administration of 3.5 mCi of technetium 99m labeled Choletec multiple plana r abdominal planar images were obtained in anterior projection in 5 minute intervals for45 minutes . Right lateral images were obtained at 2.5 hours minutes after injection. Findings: The liver appears grossly normal in size. There is no abnormal persistence of the cardiac or blood po ol activity. There is prompt visualization of the gallbladder and excretion of activity into the smal l bowel. Impression: Unremarkable hepatobiliary study without evidence of acute cholecystitis.
[2024-11-10] MEDS: DOCUSATE SOD 100 MG CAP PO PRN (15:24)
[2024-11-10 19:30] VITALS: PULSE 82; RESP 16
[2024-11-10 21:00] VITALS: BP 115/70; PULSE 60; RESP 18; TEMP 98; O2SAT 99
[2024-11-11 05:00] VITALS: BP 110/68; PULSE 66; RESP 18; TEMP 98.2; O2SAT 97
[2024-11-11 08:00] VITALS: PULSE 79; RESP 18; O2SAT 99
[2024-11-11 08:48] VITALS: BP 101/66; PULSE 79; RESP 18; TEMP 98.3; O2SAT 99
--- NOTE | 2024-11-11 15:04 | DVHDS2 ---
Discharge Summary Date of Admission Nov 07, 2024 at 18:32 Date of Discharge: Nov 11, 2024 Admitting Diagnosis Intractable abdominal pain Tachycardia Hyperbilirubinemia Elevated liver enzymes Jaundice ? Constipation Labs/Diagnostic Data: Laboratory Results Test 11/10/24 04:48 11/08/24 11:50 11/08/24 11:12 11/08/24 03:38 Ferritin 210.7 ng/mL (10-291) Beta HCG, Quantitative 0.9 mIU/mL (1.5-4.2) Anti-Nuclear Antibody Screen Positive (Negative) Urine Color Yellow (Yellow) Urine Clarity Turbid (Clear) Urine pH 5.5 (5.0-9.0) Urine Specific [place] 1.038 (1.001-1.035) Urine Protein 1+ (Negative) Urine Ketones 4+ (Negative) Urine Blood 2+ /uL (Negative) Urine Nitrite Negative (Negative) Urine Bilirubin Negative (Negative) Urine Urobilinogen 2 mg/dL (Negative) Urine Leukocyte Esterase Trace /uL (Negative) Urine RBC 67 /hpf (0 - 4) Urine Microscopic WBC 24 /HPF (0-5) Urine Squamous Epithelial Cells Few /hpf (<5) Urine Bacteria None seen /hpf (None Seen) Urine Hyaline Casts Few /lpf (0 - 2) Urine Granular Casts Few /lpf (0) Urine Mucus Few (None Seen) Urine Glucose Normal mg/dL (Normal) Urine Opiates Screen Pos (NEGATIVE) Urine Fentanyl Screen Neg (NEGATIVE) Urine Barbiturates Screen Neg (NEGATIVE) Urine Phencyclidine Screen Neg (NEGATIVE) Urine Amphetamines Screen Neg (NEGATIVE) Urine Benzodiazepines Screen Neg (NEGATIVE) Urine Cocaine Screen Neg (NEGATIVE) Urine Cannabinoids Screen Neg (NEGATIVE) Hepatitis A Antibody Total Positive (Negative) Hepatitis B Surface Antigen Negative (Negative) Hepatitis B Surface Antibody Positive (Negative) Hepatitis B Core Total Antibody Negative (Negative) Hepatitis C Antibody Negative (Negative) White Blood Count 8.5 10^3/uL (4.4-10.8) Red Blood Count 5.27 10^6/uL (4.0-5.20) Hemoglobin 14.9 g/dL (12.2-16.2) Hematocrit 44.8 % (36.0-46.0) Mean Corpuscular Volume 85.1 fL (80.0-100.0) Mean Corpuscular Hemoglobin 28.4 pg (28.0-32.0) Mean Corpuscular Hemoglobin Concent 33.3 g/dL (32.0-36.0) Red Cell Distribution Width 13.4 % (11.8-14.3) Platelet Count 361 10^3/uL (140-450) Mean Platelet Volume 10.0 fL (6.9-10.8) Neutrophils (%) (Auto) 65.5 % (37.0-80.0) Lymphocytes (%) (Auto) 25.2 % (10.0-50.0) Monocytes (%) (Auto) 7.9 % (0.0-12.0) Eosinophils (%) (Auto) 0.8 % (0.0-7.0) Basophils (%) (Auto) 0.6 % (0.0-2.0) Neutrophils # (Auto) 5.6 10 ^3/uL (1.6-8.6) Lymphocytes # (Auto) 2.1 10 ^3/uL (0.4-5.4) Monocytes # (Auto) 0.7 10 ^3/uL (0-1.3) Eosinophils # (Auto) 0.1 10 ^3/uL (0-0.8) Basophils # (Auto) 0.1 10 ^3/uL (0-0.2) Nucleated Red Blood Cells 0.1 % Sodium Level 139 mmol/L (136-145) Potassium Level 4.1 mmol/L (3.5-5.1) Chloride Level 105 mmol/L (98-107) Carbon Dioxide Level 18 mmol/L (20-31) Anion Gap 16 (5-15) Blood Urea Nitrogen 11 mg/dL (9-23) Creatinine 0.86 mg/dL (0.550-1.02) Glomerular Filtration Rate Calc 94 mL/min (>90) BUN/Creatinine Ratio 12.8 (10.0-20.0) Serum Glucose 75 mg/dL (74-106) Calcium Level 9.7 mg/dL (8.7-10.4) Total Bilirubin 1.7 mg/dL (0.2-1.0) Aspartate Amino Transferase (AST) 54 U/L (13-40) Alanine Aminotransferase (ALT) 179 U/L (7-40) Alkaline Phosphatase 89 U/L (46-116) Total Protein 8.3 g/dL (5.7-8.2) Albumin 4.9 g/dL (3.2-4.8) Test 11/07/24 11:54 Prothrombin Time 11.6 sec (9.3-11.8) Prothrombin Time INR 1.11 (0.9-1.15) Activated Partial Thromboplast Time 29.0 SEC (24.5-34.5) Lipase 29 U/L (12-53) Other Laboratory Tests 11/08/24 03:38 Brief Hx & Hospital Course: This is a 29 years old female with no known past medical history came to [facility] with chief complaint of abdominal pain. The patient reports she had been experiencing right upper quadrant abdominal pain with midsternal chest pain, back pain, fever, nausea, shortness for breath and poor appetite for 18 days. The patient has been in [facility] and [facility] for evaluation. The patient has stated that workup was done there in they found her gallbladder with some sludge and a lesion in her liver. Abdomen/pelvis CT showed no acute abdominal or pelvic finding, dilated left ovarian vein of unclear significance, can be seen with pelvic congestion syndrome. Ultrasound of right upper quadrant showed gallbladder sludge. Trans vaginal and pelvic ultrasound is unremarkable. OBGYN was consulted for possible pelvic congestion syndrome. However Dr.Zand OBGYGarcía impression is the patient did not have any pelvic congestion syndrome. GI specialist also see the patient. Dr. Urbina recommend HIDA scan. HIDA scan is unremarkable and normal. Patient does have elevation of liver function tests in total bilirubin however is trending down. Dr. Urbina recommend outpatient follow up further monitor liver disease. I am going to discharge the patient home today. Advised her to follow up with primary care physician was Q two weeks. Follow up with Dr. Urbina, GI specialist per schedule. Physical exam: HEENT: Normocephalic atraumatic pupils equal react to light and accommodation. Extraocular muscles intact, conjunctiva pink, oropharynx moist, no thrush, no exudate. Lymphatic: No lymphadenopathy Cardiovascular exam: S1, S2 was heard. No murmurs, rubs, gallops Lung: Clear on auscultation bilaterally, no wheeze, rale, rhonchi. GI: Abdominal soft, nondistended, nontenderness, positive bowel sounds. Extremity: No crepitus, cyanosis, edema. Pedal pulses present bilateral. Full range of motion. Skin: Normal turgor, no rash. Psych: Alert, oriented x3. Neurology: No focal deficits, cranial nerve II to XII grossly intact. This medical document was created using an electronic medical record system with [employer] direct computerized dictation system. Although this document has been carefully reviewed, there may still be some phonetic and typographical errors. These areas are purely typographical due to imperfections of the software programs, and do not reflect any compromise in the patient's medical care. Condition at Discharge: Stable Final Diagnosis/Problems List Intractable abdominal pain Tachycardia Hyperbilirubinemia Elevated liver enzymes Jaundice ? Constipation Discharge Disposition: Home Discharge Instruct/Medications Diet: Regular Activity: No Restrictions, As Tolerated Follow Up/Referral: PCP 1-2 WEEKS Medications: NONE No Active Prescriptions or Reported Meds Discharge Statement: "Patient was advised to return to the ER or call 911 if any headaches, dizziness, shortness of breath, chest pain, abdominal pain, bleeding, fevers, or worsening of medical condition. Patient was counseled about treatment plan, medications, possible side effects, patientverbalized understanding. All questions were answered to the best of my ability. This discharge took greater then 30 minutes in planning, reviewing documentation, counseling the patient, and discussing with other team members." ASSESSMENT ASSESSMENT Assessment ABDOMINAL PAIN Date of Service: Nov 11, 2024 Billing Provider: NITA URENA MD Common Visit Codes: 08000-XDH/OBS DISCH DAY >30min NITA URENA MD Nov 11, 2024 15:04
--- NOTE | 2024-11-11 21:50 | DVHPN2 ---
Progress Note - Dictate Date Seen: Nov 11, 2024 (Late entryPatient seen at bedside at 10:00 a.m.) Medical Necessity Reason Pt with a Central, PICC or Fol: No Subjective No new complaints Tolerating diet Continues to have ongoing multiple GI complaints vital signs Vital Sign Date Time Temp Pulse Resp B/P (MAP) Pulse Ox O2 Delivery O2 Flow Rate FiO2 11/11/24 08:48 98.3 79 18 101/66 (78) 99 98.3 11/11/24 08:00 Room Air* 0 21 Total Intake and Output 11/10/24 11/10/24 11/11/24 15:00 23:00 07:00 Intake Total 1188 ml 800 ml Balance 1188 ml 800 ml objective General: NAD, AAOX3 Chest: lung white clear to auscultation Heart: RRR, no murmur Abdomen: non-distended, generalized tenderness to palpation, +BS laboratory and microbiology Laboratory Tests 11/08/24 03:38 Test 11/08/24 03:38 Range/Units Serum Glucose 75 74-106 mg/dL HIDA SCAN Negative; gallbladder sludge Problems(with codes): (1) Abnormal finding on GI tract imaging (2) Intractable abdominal pain (3) Elevated liver enzymes (4) Hyperbilirubinemia (5) Tachycardia Prognosis Plan Her liver enzymes are trending down Hepatitis profile is negative Her AMAN is positive Patient was given my contact information to follow up in my office as an outpatient to discuss elective panendoscopy and also do further workup and monitor her liver disease Once again thank you for allowing me to participate in the care of this patient, patient has been cleared by OBGYN and discharge planning is in progress Plan discussed with: Patient DAY OSORIO MD Nov 11, 2024 21:50
== END 2024-11-11 16:20 | disposition home or self-care (01) | DRG 390 ==
LOC: ER 10:55 → OVERFLOW 18:32 → WEST WING 11-08 18:33
PROVIDERS: ADMIT Internal Medicine; ATTEND Internal Medicine
DX: K56.41 Fecal impaction (principal); R00.0 Tachycardia, unspecified; R74.8 Abnormal levels of other serum enzymes; E80.6 Other disorders of bilirubin metabolism; R79.89 Other specified abnormal findings of blood chemistry; R31.9 Hematuria, unspecified; I86.2 Pelvic varices
CPT/HCPCS: 36415; 74177; 76705; 76830; 76856; 78226; 80053; 80307; 81001; 82728; 83690; 84702; 85025; 85610; 85730; 86038; 86704; 86706; 86708; 86803; 87340; 93005; 96374; 96375; G0378; J2405; J2470; J7042